=== PATIENT | female | born 2000 | race Hispanic/Latino ===

== ENCOUNTER 2024-05-03 23:08 | Emergency (ER) | payer SELFPAY ==
--- NOTE | ~2024-05-03 | US_ITS ---
US OB <=14 wk fetus w TV DATE: 05/04/2024 02:37 INDICATION: Abdominal pain in . Vaginal bleeding. TECHNIQUE: Transabdominal and transvaginal ultrasound examination COMPARISON: None FINDINGS: There is measures 7.8 cm sagittal, 2.9 cm AP and 4.3 cm transverse dimension. The central e ndometrial echo complex measures up to 2 cm AP dimension without evidence of a gestational sac. The ovaries are not visualized. No pelvic mass or abnormal pelvic fluid collection is demonstrated. IMPRESSION: Nonspecific thickening of the endometrial echo complex without evidence of intrauterine g estational sac. No pelvic mass or abnormal pelvic fluid collection is evident. Reviewed, dictated and finalized at [facility]. Reviewed, dictated and finalized at [facility]. IMPRESSION: Nonspecific thickening of the endometrial echo complex without evid ence of intrauterine gestational sac. No pelvic mass or abnormal pelvic fluid collection is evident.
[2024-05-03 23:10] VITALS: BP 126/63; PULSE 72; RESP 18; TEMP 37.1; O2SAT 100
[2024-05-03 23:30] LABS: Basophils Percent Auto 0.4 % (0.2-1.2); Eosinophils Absolute Auto 0.1 K/mm3 (0-0.3); Eosinophils Percent Auto 1.3 % (0-4.4); Hematocrit 35.3 % (37.0-47.0); Hemoglobin 11.4 g/dL (12.0-15.0); Immature Granulocyte Absolute 0.03 K/mm3 (0.00-0.031); Immature Granulocyte Percent A 0.4 % (0-0.5); Lymphocytes Absolute Auto 2.67 K/mm3 (0.9-3.2); Lymphocytes Percent Auto 32.2 % (18.3-44.2); Mean Corpuscular HGB Conc 32.3 g/dl (32-36); Mean Corpuscular Hemoglobin 28.1 pg (26-34); Mean Corpuscular Volume 87.2 fl (80-100); Mean Platelet Volume 10.5 fl (7.4-10.4); Monocytes Absolute Auto 0.6 K/mm3 (0.1-0.6); Neutrophils Absolute Auto 4.9 K/mm3 (1.3-6.7); Neutrophils Percent Auto 58.7 % (45.5-73.1); Platelet Count Result 293 k/mm3 (150-375); Red Blood Count 4.05 M/mm3 (4.2-5.4); Red Cell Distribution Width 13.2 % (11.5-14.5); White Blood Count 8.3 K/mm3 (4.5-10.0)
[2024-05-03 23:40] LABS: Appearance Urine Clear (Clear); Bacteria Urine None Seen /hpf; Bilirubin Urine Negative (Negative); Blood Urine 1+ (Negative); Color Urine Yellow (Yellow); Glucose Urine UA Negative (Negative); Ketones Urine Negative (Negative); Leukocyte Esterase Ur Negative LEU/UL (Negative); Nitrate Urine Negative (Negative); Non Pathogenic Casts 0-2; Protein Urine Trace mg/dL (Negative); RBC Urine 21-50 /hpf (0-2); Specific Grav Ur 1.023 (1.001-1.035); Squamous Epithelial Cell Urine None Seen /hpf (Few); WBC Urine 0-5 /hpf (0-3); pH Urine 7.5 (5.0-9.0)
[2024-05-03 23:41] LABS: Add Urine Microscopic? YES
[2024-05-03 23:43] LABS: Alanine Aminotransferase 25 U/L (6-35); Albumin Level 4.9 g/dL (3.5-5.1); Alkaline Phosphatase 79 U/L (38-126); Anion Gap 13 mmol/L (4-12); Aspartate Amino Transferase 27 U/L (14-36); Bilirubin,Total 0.3 mg/dL (0.2-1.3); Blood Urea Nitrogen 7 mg/dL (7-17); Carbon Dioxide 24 mmol/L (22-30); Chloride 103 mmol/L (98-107); Estimated CRCL calculation 96 ml/min; Estimated Glomerular Filt Rate > 60; Glucose 96 mg/dL (65-110); Lipase 60 U/L (23-300); Potassium 3.7 mmol/L (3.4-5.0); Sodium 140 mmol/L (137-145)
[2024-05-04] VITALS (13 sets, daily range): BP systolic 121–160; BP diastolic 61–85; PULSE 70–86; RESP 12–25; O2SAT 98–100
--- NOTE | 2024-05-04 01:54 | PC.NURSE ---
Stratus used for interpretation. Patient taken to US via w/c at this time.
[2024-05-04 03:26] LABS: Beta HCG Quantitative 372.34 mIU/ML
--- NOTE | 2024-05-04 05:52 | ED.GENADULT ---
HPI - General Adult General Chief complaint: Abdominal Pain Stated complaint: abd pain Time Seen by Provider: 05/04/24 01:14 History of Present Illness HPI narrative: This is a 23-year-old female @ 6weeks 1d by LMP presenting for vaginal bleeding. Patient was not aware that she is . She developed crampy abdominal pain that radiates to her back. It is associated with vaginal bleeding. No urinary symptoms. No fever chills chest pain or difficulty breathing. Related Data Allergies Allergy/AdvReac Type Severity Reaction Status Date / Time No Known Allergies Allergy Verified 05/03/24 23:29 Exam Narrative: APPEARANCE: No apparent distress. Head: atraumatic. EYES: EOMI, NOSE: Atraumatic NECK: Trachea midline RESPIRATORY: No increased rate of breathing CARDIOVASCULAR: RRR, ABDOMINAL: Non-distended, mild tenderness in the suprapubic region MUSCULOSKELETAl: No obvious deformities NEURO: Alert. Moving 4/4 extremities SKIN:: Warm, dry. Normal color PSYCHIATRIC: Normal affect Course Vital Signs Vital signs: Vital Signs Temperature 98.8 F 05/03/24 23:10 Pulse Rate 72 05/03/24 23:10 Respiratory Rate 18 05/03/24 23:10 Blood Pressure 126/63 05/03/24 23:10 Pulse Oximetry 100 05/03/24 23:10 Oxygen Delivery Room Air 05/03/24 23:10 Temperature 98.8 F 05/03/24 23:10 Pulse Rate 71 05/04/24 01:32 Respiratory Rate 17 05/04/24 04:02 Blood Pressure 160/75 H 05/04/24 02:32 Pulse Oximetry 100 05/04/24 04:02 Oxygen Delivery Room Air 05/03/24 23:10 Medical Decision Making [facility] Narrative Medical decision making narrative: -Course: 23-year-old female at 6 weeks 1 day by last menstrual period presenting for vaginal bleeding in . Transvaginal ultrasound showed a 2 cm endometrial stripe. HCG is 372. Blood type O positive. No indication for RhoGAM. On reassessent patient resting comfortably. stable VS. Case discussed with Dr. Maloney. Patient will follow-up in his clinic in 2 days. -DDX includes but is not limited to: Miscarriage, vaginal bleeding -Co-morbidities complicating care: Samoan-speaking -Independent interpretation of studies: Hemoglobin 11.4. Metabolic panel unremarkable. ECG 372. Blood type O positive Urine not indicative infection Ultrasound showed a thickened endometrial complex measuring 2 cm. -Discussion of Management/Consultants:Amara -Shared decision making / Disposition:d/c'd Vital Signs Vital Signs: Vital Signs Temperature 98.8 F 05/03/24 23:10 Pulse Rate 72 05/03/24 23:10 Respiratory Rate 18 05/03/24 23:10 Blood Pressure 126/63 05/03/24 23:10 Pulse Oximetry 100 05/03/24 23:10 Oxygen Delivery Room Air 05/03/24 23:10 Temperature 98.8 F 05/03/24 23:10 Pulse Rate 71 05/04/24 01:32 Respiratory Rate 17 05/04/24 04:02 Blood Pressure 160/75 H 05/04/24 02:32 Pulse Oximetry 100 05/04/24 04:02 Oxygen Delivery Room Air 05/03/24 23:10 Lab Data 05/03/24 23:22 05/03/24 23:22 Labs: Lab Results 05/03/24 05/03/24 05/03/24 Range/Units 23:21 23:22 23:30 WBC 8.3 (4.5-10.0) K/mm3 RBC 4.05 L (4.2-5.4) M/mm3 Hgb 11.4 L (12.0-15.0) g/dL Hct 35.3 L (37.0-47.0) % MCV 87.2 (80-100) fl MCH 28.1 (26-34) pg MCHC 32.3 (32-36) g/dl RDW 13.2 (11.5-14.5) % Plt Count 293 (150-375) k/mm3 MPV 10.5 H (7.4-10.4) fl Immature Gran % (Auto) 0.4 (0-0.5) % Neut % (Auto) 58.7 (45.5-73.1) % Lymph % (Auto) 32.2 (18.3-44.2) % [place] % (Auto) 7.0 (2.6-8.5) % Eos % (Auto) 1.3 (0-4.4) % Baso % (Auto) 0.4 (0.2-1.2) % Lymph # (Auto) 2.67 (0.9-3.2) K/mm3 [place] # (Auto) 0.6 (0.1-0.6) K/mm3 Eos # (Auto) 0.1 (0-0.3) K/mm3 Baso # (Auto) 0.0 (0.0-0.1) K/mm3 Abs Immat Gran (auto) 0.03 (0.00-0.031) K/mm3 Absolute Neuts (auto) 4.9 (1.3-6.7) K/mm3 Absolute Nucleated RBC 0.000 (0.0-
== END 2024-05-04 06:26 | disposition home or self-care (01) ==
PROVIDERS: Emergency Provider Emergency Medicine
DX: O20.9 Hemorrhage in early pregnancy, unspecified (principal); Z3A.01 Less than 8 weeks gestation of pregnancy
CPT/HCPCS: 36415; 76801; 76817; 80053; 81001; 81025; 83690; 84702; 85025; 85461; 86850; 86900; 86901; 99284

== ENCOUNTER 2024-10-29 20:50 | Emergency (ER) | payer SELFPAY ==
--- NOTE | ~2024-10-29 | US_ITS ---
US OB limited 10/29/2024 22:42 Indication: Left-sided abdomen pain. Evaluate viability. Procedure: Real-time Limited obstetrical ultrasound using transabdominal technique Comparison: No prior studies for comparison. Findings: There is a single living intrauterine in vertex presentation. heart rate 14 1 BPM. Placenta is posterior. Amniotic fluid is subjectively normal. Impression: 1: Single living intrauterine in vertex presentation. Reviewed, dictated and finalized at location [facility]. SS CONSULTANT Impression: 1: Single living intrauterine in vertex presentation.
[2024-10-29 20:57] VITALS: BP 118/54; PULSE 70; RESP 15; TEMP 35.9; O2SAT 100
[2024-10-29 22:05] LABS: Basophils Percent Auto 0.3 % (0.2-1.2); Eosinophils Absolute Auto 0.1 K/mm3 (0-0.3); Eosinophils Percent Auto 0.6 % (0-4.4); Hematocrit 34.4 % (37.0-47.0); Hemoglobin 11.7 g/dL (12.0-15.0); Immature Granulocyte Absolute 0.04 K/mm3 (0.00-0.031); Immature Granulocyte Percent A 0.4 % (0-0.5); Lymphocytes Absolute Auto 2.42 K/mm3 (0.9-3.2); Lymphocytes Percent Auto 22.3 % (18.3-44.2); Mean Corpuscular Hemoglobin 29.1 pg (26-34); Mean Corpuscular Volume 85.6 fl (80-100); Mean Platelet Volume 10.7 fl (7.4-10.4); Monocytes Absolute Auto 0.6 K/mm3 (0.1-0.6); Monocytes Percent Auto 5.3 % (2.6-8.5); Neutrophils Absolute Auto 7.7 K/mm3 (1.3-6.7); Neutrophils Percent Auto 71.1 % (45.5-73.1); Platelet Count Result 252 k/mm3 (150-375); Red Blood Count 4.02 M/mm3 (4.2-5.4); Red Cell Distribution Width 13.1 % (11.5-14.5); White Blood Count 10.9 K/mm3 (4.5-10.0)
[2024-10-29 22:12] LABS: Add Urine Microscopic? YES; Appearance Urine Cloudy (Clear); Bacteria Urine 3+ /hpf; Bilirubin Urine Negative (Negative); Blood Urine Negative (Negative); Color Urine Yellow (Yellow); Glucose Urine UA Negative (Negative); Ketones Urine Trace mg/dL (Negative); Leukocyte Esterase Ur 1+ LEU/UL (Negative); Need Manual Microscopic Reviewed; Nitrate Urine Negative (Negative); Non Pathogenic Casts 0-2; Protein Urine Trace mg/dL (Negative); RBC Urine 0-2 /hpf (0-2); Squamous Epithelial Cell Urine Many /hpf (Few); Urobilinogen Urine 0.2 mg/dL (<2.0)
[2024-10-29 22:15] LABS: Alanine Aminotransferase 18 U/L (6-35); Albumin Level 4.2 g/dL (3.5-5.1); Alkaline Phosphatase 77 U/L (38-126); Anion Gap 9 mmol/L (4-12); Aspartate Amino Transferase 22 U/L (14-36); Bilirubin,Total 0.5 mg/dL (0.2-1.3); Blood Urea Nitrogen 7 mg/dL (7-17); Calcium 9.3 mg/dL (8.4-10.2); Carbon Dioxide 22 mmol/L (22-30); Chloride 103 mmol/L (98-107); Estimated CRCL calculation 159 ml/min; Estimated Glomerular Filt Rate > 60; Glucose 85 mg/dL (65-110); Potassium 3.4 mmol/L (3.4-5.0); Sodium 134 mmol/L (137-145)
[2024-10-29] MEDS: ACETAMINOPHEN 500 MG TABLET 1000 MG PO (22:22)
[2024-10-29] MEDS: SODIUM CHLORIDE 0.9% IV 1,000 ML 999 ML IV CONT (22:25)
--- NOTE | 2024-10-29 23:09 | ED_ITS ---
HPI - Abdominal Pain General Chief Complaint: Abdominal Pain Stated Complaint: , LOWER ABD, 19 WEEKS, Time Seen by Provider: 10/29/24 21:01 Source: patient Mode of arrival: ambulatory Limitations: no limitations and language barrier History of Present Illness HPI narrative: Patient is a 24-year-old female who presents the ED with report of lower abdominal pain. Patient is primarily Citizen [place]-speaking. [employer] quality assurance monitor body was utilized for assistance with translation. Patient is and currently approximately 19 weeks gestation. Reports around 5:30 p.m. today she began having pain throughout her lower abdomen radiating around to her left lower back. States her lower abdominal pain has since resolved, but she is still having some discomfort in her left lower back. Has not tried anything for the pain. Denies any vaginal bleeding. Denies fevers. Denies urinary complaints. Does not currently have an OBGYN. Has been seen at a outside clinic and had an ultrasound confirming IUP. Related Data Allergies Allergy/AdvReac Type Severity Reaction Status Date / Time No Known Allergies Allergy Verified 05/03/24 23:29 Review of Systems 2 Review of Systems: All systems reviewed & are unremarkable except as noted in HPI. All systems reviewed & are unremarkable except as noted in HPI and below Exam 2 Narrative: GENERAL: Well appearing, well-nourished, non-toxic, in no acute distress. HEAD: Normocephalic, atraumatic. RESPIRATORY: Airway patent, respirations nonlabored. Clear to auscultation bilaterally, no rales, rhonchi, wheezing. CARDIOVASCULAR: Regular rate and rhythm without murmurs, rubs, or gallops. ABDOMINAL: Soft, uterus gravid, palpable near umbilicus. No significant tenderness throughout lower abdomen. Nondistended. Normoactive BS. MUSCULOSKELETAL: Moves all extremities. No gross deformities. Minimal tenderness in lumbosacral region. No midline spinal tenderness. SKIN: Warm, dry, normal color. NEURO: A&O X3. Speech clear. Cranial nerves II-XII grossly intact. Steady gait. No ataxic movements. PSYCHIATRIC: Appropriate mood and affect. Normal interaction. Course Vital Signs Vital signs: Vital Signs Temperature 96.6 F L 10/29/24 20:57 Pulse Rate 70 10/29/24 20:57 Respiratory Rate 15 10/29/24 20:57 Blood Pressure 118/54 L 10/29/24 20:57 Pulse Oximetry 100 10/29/24 20:57 Oxygen Delivery Room Air 10/29/24 20:57 Temperature 96.6 F L 10/29/24 20:57 Pulse Rate 70 10/29/24 20:57 Respiratory Rate 15 10/29/24 20:57 Blood Pressure 118/54 L 10/29/24 20:57 Pulse Oximetry 100 10/29/24 20:57 Oxygen Delivery Room Air 10/29/24 20:57 MDM - Abdominal Pain MDM Narrative Medical decision making narrative: Patient presented to ED currently 19 weeks gestation with lower abdominal pain. Does not currently have an OBGYN. Vital signs are stable upon arrival. Patient is in no acute distress. Cbc with white blood cell count of 10.9. H&H is stable, consistent with previous records. CMP is unremarkable. Urine is consistent with infection. Urine sent for culture. Will treat given status. Given fluids and dose of Rocephin in the ED. Patient was also given Tylenol. Ob ultrasound was obtained and does show live IUP, good heart tones, no other significant abnormalities. No records to compare to. On re-evaluation, patient is feeling improved. Pain is resolved. Discussed possibility of UTI causing pain versus round ligament pain given patient's gestational age. Recommended that patient continue to stay well hydrated at home, continue Tylenol as needed, take antibiotics as prescribed for UTI. Recommended close follow-up with OBGYN. Given strict return precautions. She agrees with plan. All questions answered. She feels comfortable going home. Discharged in stable condition. Medical Records Attestation: I reviewed the patient's medical records. Lab Data Attestation: I reviewed the patient's lab results. 10/29/24 21:58 10/29/24 21:58 Labs: Lab Results 10/29/24 Range/Units 21:58 WBC 10.9 H (4.5-10.0) K/mm3 RBC 4.02 L (4.2-5.4) M/mm3 Hgb 11.7 L (12.0-15.0) g/dL Hct 34.4 L (37.0-47.0) % MCV 85.6 (80-100) fl MCH 29.1 (26-34) pg MCHC 34.0 (32-36) g/dl RDW 13.1 (11.5-14.5) % Plt Count 252 (150-375) k/mm3 MPV 10.7 H (7.4-10.4) fl Immature Gran % (Auto) 0.4 (0-0.5) % Neut % (Auto) 71.1 (45.5-73.1) % Lymph % (Auto) 22.3 (18.3-44.2) % [place] % (Auto) 5.3 (2.6-8.5) % Eos % (Auto) 0.6 (0-4.4) % Baso % (Auto) 0.3 (0.2-1.2) % Lymph # (Auto) 2.42 (0.9-3.2) K/mm3 [place] # (Auto) 0.6 (0.1-0.6) K/mm3 Eos # (Auto) 0.1 (0-0.3) K/mm3 Baso # (Auto) 0.0 (0.0-0.1) K/mm3 Abs Immat Gran (auto) 0.04 H (0.00-0.031) K/mm3 Absolute Neuts (auto) 7.7 H (1.3-6.7) K/mm3 Absolute Nucleated RBC 0.000 (0.0-0.012) K/mm3 Nucleated RBC % 0.0 (0.0-0.2) % Sodium 134 L (137-145) mmol/L Potassium 3.4 (3.4-5.0) mmol/L Chloride 103 (98-107) mmol/L Carbon Dioxide 22 (22-30) mmol/L Anion Gap 9 (4-12) mmol/L BUN 7 (7-17) mg/dL Creatinine 0.39 L (0.7-1.0) mg/dL Estim Creat Clear Calc 159 ml/min Estimated GFR > 60 (59 - ) Glucose 85 (65-110) mg/dL Calcium 9.3 (8.4-10.2) mg/dL Total Bilirubin 0.5 (0.2-1.3) mg/dL AST 22 (14-36) U/L ALT 18 (6-35) U/L Alkaline Phosphatase 77 (38-126) U/L Total Protein 8.0 (6.3-8.2) g/dL Albumin 4.2 (3.5-5.1) g/dL Urine Color Yellow (Yellow) Urine Appearance Cloudy H (Clear) Urine pH 6.0 (5.0-9.0) Ur Specific [place] 1.020 (1.001-1.035) Urine Protein Trace (Negative) mg/dL Urine Glucose (UA) Negative (Negative) mg/dL Urine Ketones Trace H (Negative) mg/dL Ur Blood (Man) Negative (Negative) Urine Nitrate Negative (Negative) Urine Bilirubin Negative (Negative) Urine Urobilinogen 0.2 (<2.0) mg/dL Add Ur Microanalysis Reviewed Leukocyte Esterase Rfl 1+ H (Negative) HARINI/UL Urine RBC 0-2 (0-2) /hpf Urine WBC 11-20 H (0-3) /hpf Ur Squamous Epith Cells Many H (Few) /hpf Urine Bacteria 3+ H /hpf Urine Casts 0-2 Imaging Data Attestation: I personally reviewed and interpreted this imaging study as follows: Radiologist's impression: ITS Impressions Obstetrics Ultrasound 10/29/24 22:43 Impression: 1: Single living intrauterine in vertex presentation. Discharge Plan Discharge Clinical Impression: 19 weeks gestation of Abdominal pain during Qualifiers: Trimester: second trimester Qualified Code(s): O26.892 - Other specified related conditions, second trimester UTI (urinary tract infection) during Qualifiers: Trimester: second trimester Qualified Code(s): O23.42 - Unspecified infection of urinary tract in , second trimester Patient Disposition: Home, Self-Care Condition: Stable Instructions: Antibiotic Form, Abdominal Pain in (ED), Urinary Tract Infection in (ED) Additional Instructions: Take antibiotics as prescribed for urinary tract infection. Stay well hydrated at home. You may take Tylenol as needed for pain. Follow-up with OBGYN for further evaluation and management of . Return to the ED if you experience worsening or severe symptoms, severe pain, vaginal bleeding, unable to keep down food or drink, or any other symptoms of concern. Patient Language: Citizen [place] Prescriptions: New cephalexin 500 mg capsule 500 mg PO Q6H 7 Days Qty: 28 0RF Follow-up/Referrals: Hudson Maloney MD [Physician] - (OBGYN) PHYSICIAN,SPEECH PATHOLOGY SUPERVISOR [Primary Care Provider] - Time of Disposition: 23:22
[2024-10-30 00:12] VITALS: BP 114/55; PULSE 69; RESP 14; O2SAT 98
== END 2024-10-30 00:14 | disposition home or self-care (01) ==
PROVIDERS: Emergency Provider Physician Assistant
DX: O23.42 Unspecified infection of urinary tract in pregnancy, second trimester (principal); N39.0 Urinary tract infection, site not specified; O26.892 Other specified pregnancy related conditions, second trimester; R10.30 Lower abdominal pain, unspecified; Z3A.19 19 weeks gestation of pregnancy
CPT/HCPCS: 36415; 76815; 80053; 81001; 85025; 87086; 96365; 99284; A9270; J0696; J7030